=== PATIENT | male | born 1985 | race African-American/Black ===

== ENCOUNTER 2018-02-24 14:40 | Emergency (ER) | payer SELFPAY ==
[~2018-02-24] VITALS: Ht 172.7 cm; Wt 70.0 kg
[2018-02-24] MEDS ORDERED: SODIUM CHLORIDE 0.9% 1,000 ML IV ONE (15:10)
[2018-02-24 15:39] LABS: BASOPHILS % 0.7 % (0.0-2.0); EOSINOPHILS % 1.9 % (0.0-5.0); HEMATOCRIT. 47.9 % (42.0-52.0); HEMOGLOBIN. 16.2 g/dL (14.0-18.0); LYMPHOCYTES % 26.6 % (20.0-50.0); MEAN CORPUSCULAR HEMOGLOBIN 30.5 pg (28.0-32.0); MEAN PLATELET VOLUME 7.7 fl (7.4-10.4); MONOCYTES % 6.8 % (2.0-8.0); PLATELET 224 x1000/uL (130-400); RED BLOOD CELL COUNT 5.32 mill/uL (4.7-6.1); RED CELL DISTRIBUTION WIDTH 13.3 % (11.6-14.6)
[2018-02-24 15:48] LABS: INR 1.1; PARTIAL THROMBOPLASTIN TIME 25.8 sec (23.4-31.0)
[2018-02-24 15:51] LABS: CHLORIDE 108 mEq/L (98-107); ETHANOL BLOOD < 10 mg/dL
[2018-02-24 17:46] LABS: *AMPHETAMINES SCREEN URINE NEGATIVE (NEGATIVE); *BARBITURATES SCREEN URINE NEGATIVE (NEGATIVE); *BENZODIAZEPINES SCREEN URINE PRESUMTIVE POSITIVE (NEGATIVE); *COCAINE SCREEN URINE NEGATIVE (NEGATIVE); CANNABINOID URINE SCREEN PRESUMTIVE POSITIVE (NEGATIVE); METHADONE URINE SCREEN NEGATIVE (NEGATIVE); OPIATES URINE SCREEN NEGATIVE (NEGATIVE); PHENCYCLIDINE URINE SCREEN NEGATIVE (NEGATIVE)
[2018-02-25] MEDS ORDERED: SERT50TA PO (05:07)
[2018-02-25] MEDS ORDERED: OLANZAPINE 10 MG/VIAL IM ONE (20:00)
[2018-02-26 03:21] VITALS: BP 132/68
== END 2018-02-26 04:30 | disposition left against medical advice (07) ==
LOC: ER 14:50
DX: T50.901A Poisoning by unspecified drugs, medicaments and biological substances, accidental (unintentional), initial encounter (principal); R45.851 Suicidal ideations
CPT/HCPCS: 36415; 71045; 80053; 80305; 80307; 80329; 83735; 85025; 85610; 85730; 93005; 96360; 96361; 99285; G0482; J3490; J7030